=== PATIENT | male | born 1960 | race Caucasian/White ===

== ENCOUNTER 2022-08-23 09:14 | Day surgery (SDC) | payer MEDICARE, SELFPAY ==
--- OUTSIDE RECORDS SUMMARY | 2022-08-23 09:19 | XMS_ITS | Continuity of Care Document ---
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 Phone [facility] Unavailable Unava ilable Procedures Procedure Date IMPLANT NEUROELECTRODES INSRT/REDO SPINE N GENERATOR Implt neurostim elctr each Imp neurosti pls gn any type IMPLANT NEUROELECTRODES Implt neurostim elctr each IMPLANT NEUROELECTRODES Advance Directives Directive Yes / No Effective Date File Name No Information Encounters Encounter Description Practice Location Reason(s) For Visit Diagnoses Date Provider Providers Copied on Encounter [facility], [address] [place] [address], [id number], tel:[phone] [facility] No Information 1 [facility]. [address] [place] [address], [id number], [place]. tel:[phone] Referring Provider: Merry Jackman [facility] [address], [place], [address]. tel:[phone] [facility], [address] [place] [address], [id number], tel:[phone] [facility] No Information [facility]. [address] [place] [address], [id number], [place]. tel:[phone] Referring Provider: Tommie Yepez [address], [place], [address]. tel:[phone] Family History Family Member Type Diagnosis Age At Onset No Information Payers Payer name Insurance type Covered alliance party ID Authoriza tialexis(s) [facility] [id number] Social History Type Description Quantity Date Captured Comments Sex Male Smoking Status No Information Chief Complaint And Reason For Visit No Information Reason For Referral Reason For Referral No Information Plan Of Treatment Date Type Action Status No Information History Of Present Illness Encounter Date Complaint History Of Prese nt Illness No Information Functional Status Date Functional Assessmen t No Information Instructions Date Instruction Additional Infor mation No Information Assessments Type Assessment Date No Information Patient Care Teams Name Effective Dates (start - stop) Status Members No Information
--- OUTSIDE RECORDS SUMMARY | 2022-08-23 09:19 | XMS_ITS | Continuity of Care Document ---
Author Name Unknown Organization [facility] Address [address] [facility] [place] [address] Phone Care Team Providers Care Carpet Renovator Name Role Phone Elham DESAITFawad Unavailable Unava ilable Allergies, Adverse Reactions, Alerts Substance Reaction Status Criticality No Known Allergies Active No Inform ation Medications Medication Instructions Dosage Effective Dates (start - stop) Status Comments gabapentin 300 mg capsule take 1 capsule by oral route 1-3 times daily per titration schedule provided - Active Trulicity 0.75 mg/0.5 mL subcutaneous pen injector inject (0.75MG) by subcutaneous route every week 0.75 MG - Active lisinopril 5 mg tablet take 1 tablet by oral route every day 5 MG - Active Procedures Procedure Date ANALYZE NEUROSTIM, COMPLEX Foll-up eval q3mo opiod tx OFFICE/OUTPATIENT VISIT, EST Foll-up eval q3mo opiod tx OFFICE VISIT, EST TELEMEDICINE Foll-up eval q3mo opiod tx OFFICE VISIT, EST TELEMEDICINE Drug Urine Toxology With Chromatography Drug test def 8-14 classes Foll-up eval q3mo opiod tx OFFICE/OUTPATIENT VISIT, EST NEUROMUSCULAR REEDUCATION SELF CARE MNGMENT TRAINING Foll-up eval q3mo opiod tx OFFICE VISIT, EST TELEMEDICINE 21 PT RE EVAL EST PLAN CARE NEUROMUSCULAR REEDUCATION SCS Post Op Satellite Foll-up eval q3mo opiod tx OFFICE VISIT, EST TELEMEDICINE 21 [facility]CS Post Op Satellite No Charge For Visit Per Prov IMPLANT NEUROELECTRODES ASC IMPLANT NEUROELECTRODES ASC INSRT/REDO SPINE N GENERATOR Implt neurostim elctr each Imp neurosti pls gn any type ROUTINE BLOOD DRAW OFFICE/OUTPATIENT VISIT, EST No Charge For Visit Per Prov SCS Lead Pull Satellite No Charge For Visit Per Prov SCS Mid Trial Satellite IMPLANT NEUROELECTRODES ASC IMPLANT NEUROELECTRODES [facility] ANALYZE NEUROSTIM, COMPLEX Foll-up eval q3mo opiod tx OFFICE VISIT, EST TELEMEDICINE 21 PT EVAL MOD COMPLEX 30 MIN SELF CARE MNGMENT TRAINING Foll-up eval q3mo opiod tx OFFICE/OUTPATIENT VISIT, EST Psych Dx Eval Foll-up eval q3mo opiod tx OFFICE/OUTPATIENT VISIT, EST Foll-up eval q3mo opiod tx OFFICE/OUTPATIENT VISIT, EST Foll-up eval q3mo opiod tx OFFICE/OUTPATIENT VISIT, EST ROUTINE BLOOD DRAW Drug test def 8-14 classes Drug Urine Toxology With Chromatography OFFICE/OUTPATIENT VISIT, NEW PT-FOCUSED HLTH RISK ASSMT Advance Directives Directive Yes / No Effective Date File Name No Information Encounters Encounter Description Practice Location Reason(s) For Visit Diagnoses Date Provider Providers Copied on Encounter [facility], [address] [place] [address], [id number] , [place] tel: [phone] [facility] [place] No Information 2 Elham Howardmarianne Fawad. [address] [place] [address] [place], [place], [id number] , [place]. tel: [phone] [facility], [address] [place] [address], [id number] , [place] tel: [phone] [facility] Complex regional pain syndrome I 2 Yepez Tommie. [facility], [address], [place], [address], [place]. [phone] Referring Provider: Samuel Johnson, [address] [place], [place] [address], [address] . tel:[phone] OFFICE/OUTPAT IENT VISIT, EST [facility], [address] [place] [address], [id number] , [place] tel:[phone] [facility] UE CRPS (chief complaint) Carpal tunnel syndrome, bilateral upper limbsNeuropathyCo mplex regional pain syndrome ISpinal stenosis, cervical regionLong term (current) use of opiate analgesicOther residential (current) drug therapy 2 Yepez Tommie. [facility], [address], [place], [address], [place]. [phone] Referring Provider: Samuel Johnson, [address] [place], [place] [address], [address] . tel:[phone] OFFICE VISIT, EST TELEMEDICINE [facility], [address] [place] [address], [id number] , [place] tel:[phone] [facility] [place] [facility] UE CRPS (chief complaint) NeuropathyLong term (current) use of opiate analgesicSpinal stenosis, cervical regionComplex regional pain syndrome ICarpal tunnel syndrome, bilateral upper limbsOther residential (current) drug therapy 2 Yepez Tommie. [facility], [address], [place], [address], [place]. tel:[phone] OFFICE VISIT, [facility] TELEMEDICINE [facility], [address] [place] [address], [id number] , [place] [phone] [facility] UE CRPS (chief complaint) NeuropathyLong term (current) use of opiate analgesicSpinal stenosis, cervical regionComplex regional pain syndrome ICarpal tunnel syndrome, bilateral upper limbsOther residential (current) drug therapy 2 Yepez Tommie. [facility], [address], [place], [address], [place]. [phone] [facility], [address] [place] [address], [id number] , [place] [phone] [facility] No Information 1 Yepez Tommie. [facility], [address], [place], [address], [place]. [phone] Referring Provider: Samuel Johnson, [address] [place], [place] [address], [address] . tel:[phone] OFFICE/OUTPAT IENT VISIT, [facility], [address] [place] [address], [id number] , [place] [phone] [facility] UE CRPS (chief complaint) NeuropathyLong term (current) use of opiate analgesicSpinal stenosis, cervical regionComplex regional pain syndrome ICarpal tunnel syndrome, bilateral upper limbsOther intermodal owner operator truck driver (current) drug therapyEncounter for therapeutic drug level monitoring 1 Yepez Tommie. [facility], [address], [place], [address], [place]. tel:[phone] Referring Provider: Samuel Johnson, [address] [place], [place] [address], [address] . [phone] [facility], [address] [place] [address], [id number] , [place] tel: [phone] [facility] B UE CRPS (chief complaint) Complex regional pain syndrome I of upper limb, bilateral 1 Elham Celestin. [address] [place], [id number] , [place]. tel: [phone] Referring Provider: Samuel Johnson, [address] [place] [address] [place], [address] . tel:[phone] OFFICE VISIT, EST TELEMEDICINE [facility], [address] [place] [address] [place], [id number] , [place] tel: [phone] [facility] [place] [facility] UE CRPS (chief complaint) NeuropathyLong term (current) use of opiate analgesicSpinal stenosis, cervical regionComplex regional pain syndrome ICarpal tunnel syndrome, bilateral upper limbsOther residential (current) drug therapy 1 Lucho Diallois. [facility], [address], [place], [address], [place]. [phone] Referring Provider: Samuel Johnson, [address] [place] [address] [place], [address] . tel:[phone] [facility], [address] [place], [place] [address]Mir[place], [id number] , [place] tel: [phone] [facility] [place] B UE (chief complaint) Complex regional pain syndrome I of upper limb, bilateralSpinal stenosis, cervical region 1 Elham Celestin. [address] [place], [id number] , [place]. tel:[phone] Referring Provider: Samuel Johnson, [address] [place], [place] [address], [address] . tel:[phone] OFFICE VISIT, EST TELEMEDICINE [facility], [address] [place], [id number] , [place] tel:[phone] [facility] [place] Complex Regional Pain Syndrome (chief complaint) NeuropathyLong term (current) use of opiate analgesicSpinal stenosis, cervical regionComplex regional pain syndrome ICarpal tunnel syndrome, bilateral upper limbsOther intermodal owner operator truck driver (current) drug therapy Oct-2 0- 1 Amber Morillo. [address], [place], [place], [id number] , [place]. tel: [phone] [facility], [address] [place] [address], [id number] , [place] tel: [phone] [facility] Complex regional pain syndrome I of upper limb, bilateral Oct- 3- 1 Kristin Sr. [address], [place], [place], [id number] , [place]. tel: [phone] Referring Provider: Samuel Johnson, [address] [place], [place] [address], [address] . tel:[phone] [facility], [address] [place] [address], [id number] , [place] tel: [phone] [facility] Complex regional pain syndrome I of upper limb, bilateral Feb-0 1 Yepez Tommie. [facility], [address], [place], [address], [place]. [phone] Referring Provider: Samuel Johnson, [address] [place], [place] [address], [address] . tel:[phone] [facility], [address] [place] [address], [id number] , [place] tel: [phone] [facility] No Information Jan-2 1 Yepez Tommie. [facility], [address], [place], [address], [place]. [phone] OFFICE/OUTPAT IENT VISIT, EST [facility], [address] [place] [address], [id number] , [place] tel:[phone] [facility] B UE CRPS (chief complaint) Other residential (current) drug therapyCarpal tunnel syndrome, bilateral upper limbsComplex regional pain syndrome ISpinal stenosis, cervical regionLong term (current) use of opiate analgesicNeuropat hy Sep-2 8 1 Yepez Tommie. [facility], [address], [place], [address], [place]. [phone] Referring Provider: Samuel Johnson, [address] [place] [address] [place], [address] . tel:[phone] [facility], [address] [place] [address] [place], [id number] , [place] [phone] [facility] Complex regional pain syndrome I of upper limb, bilateral Sep-0 2 1 Yepez Tommie. [facility], [address], [place], [address], [place]. [phone] Referring Provider: Samuel Johnson, [address] [place] [address] [place], [address] . [phone] [facility], [address] [place] [address] [place], [id number] , [place] tel:[phone] [facility] Complex regional pain syndrome I of upper limb, bilateral Aug-3 0- 1 Kristin Sr. [address] [place] [address] [address], [place], [id number] , [place]. tel:[phone] Referring Provider: Samuel Johnson, [address] [place] [address] [place], [address] . tel:[phone] [facility], [address] [place] [address] [place], [id number] , [place] [phone] [facility] Complex regional pain syndrome I of upper limb, bilateral Aug-2 1 Yepez Tommie. [facility], [address] [facility] [address], [place], [address], [place]. [phone] Referring Provider: Samuel Johnson, [address] [place] [address] [place], [address] . tel:[phone] OFFICE VISIT, EST TELEMEDICINE [facility], [address] [place] [address] [place], [id number] , [place] tel:[phone] [facility] [place] retirement (current) use of opiate analgesicOther residential (current) drug therapyCarpal tunnel syndrome, bilateral upper limbsNeuropathyCo mplex regional pain syndrome ISpinal stenosis, cervical region 1 Yepez Tommie. [facility], [address], [place], [address], [place]. [phone] Referring Provider: Samuel Johnson, [address] [place] [address] [place], [address] . tel:[phone] [facility], [address] [place] [address] Félix [place], [place], [id number] , [place] tel:[phone] [facility] UE CRPS (chief complaint) Complex regional pain syndrome I of upper limb, bilateral 1 Elham Celestin. [address] [place] [address] [place], [id number] , [place]. tel:[phone] Referring Provider: Samuel Johnson, [address] [place] [address] [place], [address] . tel:[phone] OFFICE/OUTPAT IENT VISIT, [facility], [address] [place] [address] [place], [id number] , [place] tel: [phone] [facility] Arm pain (chief complaint) terminal superintendent (current) use of opiate analgesicOther residential (current) drug therapyCarpal tunnel syndrome, bilateral upper limbsNeuropathyCo mplex regional pain syndrome ISpinal stenosis, cervical regionComplex regional pain syndrome I of upper limb, bilateral 1 Yepez Tommie. [facility], [address], [place], [address], [place]. tel:[phone] Referring Provider: Samuel Johnson, [address] [place] [address] [place], [address] . 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 [address] [place] [address] [place], [id number] , [place]. tel:[phone] Referring Provider: Samuel Johnson, [address] [place] [address] [place], [address] . tel:[phone] OFFICE/OUTPAT IENT VISIT, [facility], [address] [place] [address] Félix [place], [place], [id number] , [place] tel: [phone] [facility] Arm pain (chief complaint) retirement (current) use of opiate analgesicOther intermodal owner operator truck driver (current) drug therapyCarpal tunnel syndrome, bilateral upper limbsNeuropathyCo mplex regional pain syndrome ISpinal stenosis, cervical region 1 Yepez Tommie. [facility], [address], [place], [address], [place]. [phone] Referring Provider: Samuel Johnson, [address] [place] [address] [place], [address] . tel:[phone] OFFICE/OUTPAT IENT VISIT, [facility], [address] [place] [address], [id number] , [place] tel:[phone] [facility] Arm pain (chief complaint) retirement (current) use of opiate analgesicOther residential (current) drug therapyCarpal tunnel syndrome, bilateral upper limbsNeuropathyCo mplex regional pain syndrome ISpinal stenosis, cervical region 1 Yepez Tommie. [facility], [address], [place], [address], [place]. [phone] Referring Provider: Samuel Johnson, [address] [place] [address] [place], [address] . tel:[phone] OFFICE/OUTPAT IENT VISIT, [facility], [address] [place] [address] [place], [place], [id number] , [place] [phone] [facility] Arm pain (chief complaint) terminal superintendent (current) use of opiate analgesicOther residential (current) drug therapyCarpal tunnel syndrome, bilateral upper limbsNeuropathyCo mplex regional pain syndrome ISpinal stenosis, cervical region 1 Yepez Tommie. [facility], [address], [place], [address], [place]. [phone] Referring Provider: Samuel Johnson, [address] [place] [address] [place], [address] . tel:[phone] [facility], [address] [place] [address], [id number] , [place] [phone] [facility] Encounter for therapeutic drug level monitoringLong term (current) use of opiate analgesic 1 [facility] Tommie. [facility], [address], [place], [address], [place]. [phone] Referring Provider: Samuel Johnson, [address] [place] [address] [place], [address] . tel:[phone] OFFICE/OUTPAT IENT VISIT, [facility], [address] [place] [address], [id number] , [place] [phone] [facility] Widespread pain (chief complaint) Encounter for screening for other disorderLong term (current) use of opiate analgesicOther residential (current) drug therapyNeuropathy Carpal tunnel syndrome, bilateral upper limbsComplex regional pain syndrome IEncounter for therapeutic drug level monitoringSpinal stenosis, cervical region 1 Yepez Tommie. [facility], [address], [place], [address], [place]. [phone] Referring Provider: Samuel Johnson, [address] [place] [address] [place], [address] . tel:[phone] [facility], [address] [place] [address], [id number] , [place] tel:[phone] [facility] No Information 1 Yepez Tommie. [facility], [address], [place], [address], [place]. tel:[phone] Family History Family Member Type Diagnosis Age At Onset No Information Payers Payer name Insurance type Covered republican ID James burr(s) Blue Cross Blue [facility] BL [id number] Social History Type Description Quantity Date Captured Comments Sex Male Smoking Status No Information Chief Complaint And Reason For Visit No Information Reason For Referral Reason For Referral No Information Plan Of Treatment Date Type Action Status Goal Weight. Due on d ue Goal Medication Reconciliation. D ue on due Goal PHQ-9. Due on du e Goal Tobacco Use. Due on due Goal Update Social History. Due o n due Goal Height. Due on d ue Goal OARS. Due on due Goal Creatinine. Due on due Goal DISTRIBUTING CLERK Scanned. Due on due Goal UDT. Due on due Goal AST (SGOT). Due on due Goal Order Annual PT. Due on due Goal ALT (SGPT). Due on due Goal LIGHTING SPECIALIST Paperwork. Due on due Goal Review Allergy List. Due on due Goal Creatinine. Due on due Goal OARS. Due on due Goal Height. Due on d ue Goal Update Social History. Due o n due Goal Tobacco Use. Due on due Goal PHQ-9. Due on du e Goal Medication Reconciliation. D ue on due Goal Weight. Due on d ue Goal Review Allergy List. Due on due Goal DISTRIBUTING CLERK Scanned. Due on due Goal UDT. Due on due Goal AST (SGOT). Due on due Goal Order Annual PT. Due on due Goal ALT (SGPT). Due on due Goal LIGHTING SPECIALIST Paperwork. Due on due Goal Creatinine. Due on due Goal OARS. Due on due Goal Height. Due on d ue Goal Update Social History. Due o n due Goal Tobacco Use. Due on due Goal PHQ-9. Due on du e Goal Medication Reconciliation. D ue on due Goal Weight. Due on d ue Goal Review Allergy List. Due on due Goal LIGHTING SPECIALIST Paperwork. Due on due Goal ALT (SGPT). Due on due Goal Order Annual PT. Due on due Goal AST (SGOT). Due on due Goal UDT. Due on due Goal DISTRIBUTING CLERK Scanned. Due on due Goal Height. Due on d ue Goal Update Social History. Due o n due Goal Tobacco Use. Due on due Goal PHQ-9. Due on du e Goal Medication Reconciliation. D ue on due Goal Weight. Due on d ue Goal Review Allergy List. Due on due Goal Creatinine. Due on due Goal OARS. Due on due Goal LIGHTING SPECIALIST Paperwork. Due on due Goal ALT (SGPT). Due on due Goal Order Annual PT. Due on due Goal AST (SGOT). Due on due Goal UDT. Due on due Goal DISTRIBUTING CLERK Scanned. Due on due Goal Creatinine. Due on due Goal LIGHTING SPECIALIST Paperwork. Due on due Goal ALT (SGPT). Due on due Goal Order Annual PT. Due on due Goal AST (SGOT). Due on due Goal UDT. Due on due Goal DISTRIBUTING CLERK Scanned. Due on due Goal Update Social History. Due o n due Goal Tobacco Use. Due on due Goal PHQ-9. Due on du e Goal Medication Reconciliation. D ue on due Goal Weight. Due on d ue Goal Review Allergy List. Due on due Goal OARS. Due on due Goal Height. Due on d ue Goal LIGHTING SPECIALIST Paperwork. Due on due Goal ALT (SGPT). Due on due Goal Order Annual PT. Due on due Goal AST (SGOT). Due on due Goal UDT. Due on due Goal DISTRIBUTING CLERK Scanned. Due on due Goal Creatinine. Due on due Goal OARS. Due on due Goal Height. Due on d ue Goal Update Social History. Due o n due Goal Tobacco Use. Due on due Goal PHQ-9. Due on du e Goal Medication Reconciliation. D ue on due Goal Weight. Due on d ue Goal Review Allergy List. Due on due Goal Creatinine. Due on due Goal OARS. Due on due Goal Height. Due on d ue Goal Update Social History. Due o n due Goal Tobacco Use. Due on due Goal PHQ-9. Due on du e Goal Medication Reconciliation. D ue on due Goal Weight. Due on d ue Goal Review Allergy List. Due on due Goal LIGHTING SPECIALIST Paperwork. Due on due Goal ALT (SGPT). Due on due Goal Order Annual PT. Due on due Goal AST (SGOT). Due on due Goal UDT. Due on due Goal DISTRIBUTING CLERK Scanned. Due on due Goal Creatinine. Due on due Goal OARS. Due on due Goal Height. Due on d ue Goal Update Social History. Due o n due Goal Tobacco Use. Due on due Goal PHQ-9. Due on du e Goal Medication Reconciliation. D ue on due Goal Weight. Due on d ue Goal Review Allergy List. Due on due Goal LIGHTING SPECIALIST Paperwork. Due on due Goal ALT (SGPT). Due on due Goal Order Annual PT. Due on due Goal AST (SGOT). Due on due Goal UDT. Due on due Goal DISTRIBUTING CLERK Scanned. Due on due Goal Creatinine. Due on due Goal OARS. Due on due Goal Height. Due on d ue Goal Update Social History. Due o n due Goal Tobacco Use. Due on due Goal PHQ-9. Due on du e Goal Medication Reconciliation. D ue on due Goal Weight. Due on d ue Goal Review Allergy List. Due on due Goal LIGHTING SPECIALIST Paperwork. Due on due Goal ALT (SGPT). Due on due Goal Order Annual PT. Due on due Goal AST (SGOT). Due on due Goal UDT. Due on due Goal DISTRIBUTING CLERK Scanned. Due on due Goal Creatinine. Due on due Goal OARS. Due on due Goal Height. Due on d ue Goal Update Social History. Due o n due Goal Tobacco Use. Due on due Goal PHQ-9. Due on du e Goal Medication Reconciliation. D ue on due Goal Weight. Due on d ue Goal Review Allergy List. Due on due Goal LIGHTING SPECIALIST Paperwork. Due on due Goal ALT (SGPT). Due on due Goal Order Annual PT. Due on due Goal AST (SGOT). Due on due Goal UDT. Due on due Goal DISTRIBUTING CLERK Scanned. Due on due Goal DISTRIBUTING CLERK Scanned. Due on due Goal Creatinine. Due on due Goal OARS. Due on due Goal Height. Due on d ue Goal Update Social History. Due o n due Goal Tobacco Use. Due on due Goal PHQ-9. Due on du e Goal LIGHTING SPECIALIST Paperwork. Due on due Goal ALT (SGPT). Due on due Goal Order Annual PT. Due on due Goal AST (SGOT). Due on due Goal UDT. Due on due Goal Medication Reconciliation. D ue on due Goal Weight. Due on d ue Goal Review Allergy List. Due on due Goal Height. Due on d ue Goal Update Social History. Due o n due Goal Tobacco Use. Due on due Goal PHQ-9. Due on du e Goal Creatinine. Due on due Goal OARS. Due on due Goal LIGHTING SPECIALIST Paperwork. Due on due Goal ALT (SGPT). Due on due Goal Order Annual PT. Due on due Goal AST (SGOT). Due on due Goal UDT. Due on due Goal DISTRIBUTING CLERK Scanned. Due on due Goal Medication Reconciliation. D ue on due Goal Weight. Due on d ue Goal Review Allergy List. Due on due Goal Creatinine. Due on due Goal OARS. Due on due Goal Height. Due on d ue Goal Update Social History. Due o n due Goal Tobacco Use. Due on due Goal PHQ-9. Due on du e Goal Medication Reconciliation. D ue on due Goal Weight. Due on d ue Goal Review Allergy List. Due on due Goal LIGHTING SPECIALIST Paperwork. Due on due Goal ALT (SGPT). Due on due Goal Order Annual PT. Due on due Goal AST (SGOT). Due on due Goal UDT. Due on due Goal DISTRIBUTING CLERK Scanned. Due on due Goal LIGHTING SPECIALIST Paperwork. Due on due Goal ALT (SGPT). Due on due Goal Order Annual PT. Due on due Goal AST (SGOT). Due on due Goal UDT. Due on due Goal DISTRIBUTING CLERK Scanned. Due on due Goal Creatinine. Due on due Goal OARS. Due on due Goal Height. Due on d ue Goal Update Social History. Due o n due Goal Tobacco Use. Due on due Goal PHQ-9. Due on du e Goal Medication Reconciliation. D ue on due Goal Weight. Due on d ue Goal Review Allergy List. Due on due Goal Creatinine. Due on due Goal OARS. Due on due Goal Height. Due on d ue Goal Update Social History. Due o n due Goal LIGHTING SPECIALIST Paperwork. Due on due Goal ALT (SGPT). Due on due Goal Order Annual PT. Due on due Goal AST (SGOT). Due on due Goal UDT. Due on due Goal DISTRIBUTING CLERK Scanned. Due on due Goal Tobacco Use. Due on due Goal PHQ-9. Due on du e Goal Medication Reconciliation. D ue on due Goal Weight. Due on d ue Goal Review Allergy List. Due on due Goal Weight. Due on d ue Goal Review Allergy List. Due on due Goal LIGHTING SPECIALIST Paperwork. Due on due Goal ALT (SGPT). Due on due Goal Order Annual PT. Due on due Goal AST (SGOT). Due on due Goal UDT. Due on due Goal DISTRIBUTING CLERK Scanned. Due on due Goal Creatinine. Due on due Goal OARS. Due on due Goal Height. Due on d ue Goal Update Social History. Due o n due Goal Tobacco Use. Due on due Goal PHQ-9. Due on du e Goal Medication Reconciliation. D ue on due Goal Creatinine. Due on due Goal OARS. Due on due Goal Height. Due on d ue Goal Update Social History. Due o n due Goal Tobacco Use. Due on due Goal PHQ-9. Due on du e Goal Medication Reconciliation. D ue on due Goal Weight. Due on d ue Goal Review Allergy List. Due on due Goal LIGHTING SPECIALIST Paperwork. Due on due Goal ALT (SGPT). Due on due Goal Order Annual PT. Due on due Goal AST (SGOT). Due on due Goal UDT. Due on due Goal DISTRIBUTING CLERK Scanned. Due on due Goal Creatinine. Due on due Goal OARS. Due on due Goal Height. Due on d ue Goal Update Social History. Due o n due Goal Tobacco Use. Due on due Goal PHQ-9. Due on du e Goal Medication Reconciliation. D ue on due Goal Weight. Due on d ue Goal Review Allergy List. Due on due Goal LIGHTING SPECIALIST Paperwork. Due on due Goal ALT (SGPT). Due on due Goal Order Annual PT. Due on due Goal AST (SGOT). Due on due Goal UDT. Due on due Goal DISTRIBUTING CLERK Scanned. Due on due Goal LIGHTING SPECIALIST Paperwork. Due on due Goal ALT (SGPT). Due on due Goal Order Annual PT. Due on due Goal AST (SGOT). Due on due Goal UDT. Due on due Goal DISTRIBUTING CLERK Scanned. Due on due Goal Creatinine. Due on due Goal OARS. Due on due Goal Height. Due on d ue Goal Update Social History. Due o n due Goal Tobacco Use. Due on due Goal PHQ-9. Due on du e Goal Medication Reconciliation. D ue on due Goal Weight. Due on d ue Goal Review Allergy List. Due on due Goal Creatinine. Due on due Goal OARS. Due on due Goal Height. Due on d ue Goal Update Social History. Due o n due Goal Tobacco Use. Due on due Goal PHQ-9. Due on du e Goal Medication Reconciliation. D ue on due Goal Weight. Due on d ue Goal Review Allergy List. Due on due Goal LIGHTING SPECIALIST Paperwork. Due on due Goal ALT (SGPT). Due on due Goal Order Annual PT. Due on due Goal AST (SGOT). Due on due Goal UDT. Due on due Goal DISTRIBUTING CLERK Scanned. Due on due Goal Review Allergy List. Due on due Goal LIGHTING SPECIALIST Paperwork. Due on due Goal ALT (SGPT). Due on due Goal Order Annual PT. Due on due Goal AST (SGOT). Due on due Goal UDT. Due on due Goal DISTRIBUTING CLERK Scanned. Due on due Goal Creatinine. Due on due Goal OARS. Due on due Goal Height. Due on d ue Goal Update Social History. Due o n due Goal Tobacco Use. Due on due Goal PHQ-9. Due on du e Goal Medication Reconciliation. D ue on due Goal Weight. Due on d ue Goal Creatinine. Due on due Goal OARS. Due on due Goal Height. Due on d ue Goal Update Social History. Due o n due Goal Tobacco Use. Due on due Goal PHQ-9. Due on du e Goal Medication Reconciliation. D ue on due Goal Weight. Due on d ue Goal Review Allergy List. Due on due Goal LIGHTING SPECIALIST Paperwork. Due on due Goal ALT (SGPT). Due on due Goal Order Annual PT. Due on due Goal AST (SGOT). Due on due Goal UDT. Due on due Goal DISTRIBUTING CLERK Scanned. Due on due Goal LIGHTING SPECIALIST Paperwork. Due on due Goal ALT (SGPT). Due on due Goal Order Annual PT. Due on due Goal AST (SGOT). Due on due Goal UDT. Due on due Goal DISTRIBUTING CLERK Scanned. Due on due Goal Creatinine. Due on due Goal OARS. Due on due Goal Height. Due on d ue Goal Update Social History. Due o n due Goal Tobacco Use. Due on 021 due Goal PHQ-9. Due on du e Goal Medication Reconciliation. D ue on due Goal Weight. Due on d ue Goal Review Allergy List. Due on due Goal Tobacco cessation counseling completed History Of Present Illness Encounter Date Complaint History Of Prese nt Illness B UE CRPS (comments) Mr. Mcfarland is a pleasant 61 y/o gentleman who presents for follow-up and medication refill. 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 Notes ongoing benefit with SCS and stable symptoms this month. He has had decreased pain after experiencing a crack in his spine while sleeping. He inquires about trying gabapentin again for neuropathy.He is currently managed on Percocet 5-325mg max 2/day with 40% pain relief and increased functionality, averaging #1 tab/day. Denies side effects from current medication regimen. No other concerns today. B UE CRPS The symptoms are reported as being 2/10. The symptoms occur constantly. The location is BL hands. The symptoms are described as Aching, burning, tingling. Aggravating factors include housework. Relieving factors include heat, rest, Rx meds. He states the symptoms are chronic. B UE CRPS The symptoms are reported as being severe. The symptoms occur daily. The location is Hands. Aggravating factors include housework, lifting. Relieving factors include Heat, Rx medications. He states the symptoms are chronic. B UE CRPS (comments) Mr. Mcfarland is a pleasant 61 y/o gentleman who presents via [facility] for follow-up and medication refill. 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 Notes ongoing benefit with SCS and stable symptoms this month, but he would like to update his programming next month.He is currently managed on Percocet 5-325mg max 2/day with 40% pain relief and increased functionality. Denies side effects from current medication regimen. No other concerns today. B UE CRPS The symptoms are reported as being 3/10. The symptoms occur constantly. The symptoms are described as Aching, burning, sharp. Aggravating factors include housework, lifting. Relieving factors include Heat, rx medications, rest. He states the symptoms are chronic. B UE CRPS (comments) Mr. Mcfarland is a pleasant 61 y/o gentleman who presents for [facility] follow-up and medication refill. 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 Notes ongoing benefit with SCS and stable symptoms this month.He is currently managed on Percocet 5-325mg max 2/day with 30% pain relief and increased functionality. Denies side effects from current medication regimen. No other concerns today. B UE CRPS The symptoms are reported as being 3/10. The symptoms occur daily. The location is BUE. The symptoms are described as aching, burning, sharp, tingling. Aggravating factors include lifting, housework, using hands. Relieving factors include heat, mediations, SCS. He states the symptoms are chronic and are fairly controlled. B UE CRPS (comments) Mr. Mcfarland is a pleasant 60 y/o gentleman who presents for follow-up and medication refill. 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 S/p cervical SCS Medtronic implant 02/09. Notes ongoing benefit with SCS, although occasionally feels pain with certain movements. He has continued to work with Medtronic to find the best settings. He was discharged from PT at [facility] last month on 03/30 d/t improving symptoms. Additionally notes some fluctuating depression and anxiety symptoms for the last several years, unsure if r/t his chronic pain. Plans on discussing with PCP.He is currently managed on Percocet 5-325mg max 2/day, decreased from max 3/day MIGUEL ANGEL, which he has been tolerating. Reports current medication regimen provides 30% pain relief and allows increased functionality. Denies side effects from current medication regimen. No other concerns today. B UE CRPS Patient states t hat he has been continuing to get relief from the stimulator. He states that he has been able to do much more with his hands than he has been doing much more than he has been able to in the past. He states that the main thing he is struggling with cold and temperature regulation of his hands. He notes that he feels that his battery feels cold when he is out in the cold temperature. He notes no strength or mobility deficits at this time. B UE CRPS The symptoms are reported as being 2/10. The symptoms occur constantly. The location is BL arms, BL hands. The symptoms are described as aching, burning, tingling. Aggravating factors include housework, lifting, movement. Relieving factors include heat, Rx medications, rest. He states the symptoms are chronic. B UE CRPS (comments) Mr. Mcfarland is a pleasant 60 y/o gentleman who presents via [facility] for virtual follow-up and medication refill. 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 S/p cervical SCS Medtronic implant 02/09. Details ongoing benefit with SCS and is continuing to work with Medtronic to find the best settings. He has been doing PT with benefit.He is currently managed on Percocet 5-325mg max 3/day. Reports current medication regimen provides 40% pain relief and allows increased functionality. Denies side effects from current medication regimen. No other concerns today. B UE Patient is a 60 year old male presenting 4 weeks s/p SCS implant to help control pain and symptoms related to CRPS of his arms and hands. He notes that he has had significant improvement in his discomfort in his arms and hands following the implant. He notes that he has also had improvement in the sensitivity in his hands that was previously present. He states that he able to do more today with his hands than he has done for many years. He states that he has played around with the settings to best fit it symptoms. He feels that he may need some fine tuning adjustments but is on the right track. Patient notes some continued associated weakness and numbness. He would like to continue the improvement in his overall discomfort to allow him to perform his daily, functional activities with less limitation and experience an improved quality of life. Complex Regional Ariel n Syndrome (comments) Ulysses presents to clinic for follow-up and 2 week post-op following SCS implant. 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 His pain has been improving significantly since last OV. Details good benefit with SCS. Continuing to work with Medtronic to obtain the same benefit that he got during the trial. He is currently managed on Percocet 10-325mg TID and presents with a small surplus today. He requests to begin tapering off Percocet as his pain has been significantly improved. Reports current medication regimen provides 25% pain relief and allows increased functionality. Denies side effects from current medication regimen. No other concerns today. Complex Regional Pain Syndrome T he symptoms are reported as being 3/10. The symptoms occur constantly. The location is BUE. The symptoms are described as aching, burning, tingling, sharp, numbness. Aggravating factors include housework, lifting. Relieving factors include heat, rest. He states the symptoms are chronic and are controlled. B UE CRPS The symptoms occ ur constantly. The context of the symptoms include fluctuating. The symptoms are described as aching, burning, sharp, tingling. Aggravating factors include housework, lifting. Relieving factors include heat. He states the symptoms are chronic. B UE CRPS (comments) Mr. Mcfarland is a pleasant 60 y/o gentleman who presents to clinic for follow-up, medication refill and Medtronic SCS pre-implant education, regarding chronic R>L UE neuropathic pain in the setting of a complex surgical history. His pain has been fluctuating since last OV with R pain>L though the L pain now starting to catch up. He is excited for his upcoming SCS implant as he reported good relief with the trial. He is currently managed on Percocet 10-325mg TID and presents with a small surplus today. Reports current medication regimen provides 10% pain relief and allows increased functionality. Denies side effects from current medication regimen. No other concerns today. B UE CRPS Patient is a 60 year old male presenting with complaints of chronic bilateral arm and hand pain that has been on going since 2013. This all happened following CTS on both of his hands. The surgeries were a result of work-related injuries. He notes that the pain he has been feeling has progressively worsened over the years. He states that the pain he experiences at this point is severe and doesn't go away. He notes that if he does anything for longer than 1 minute with his hands his pain spikes to 8/10. He cannot have any cold air blowing near his hands or his pain will flair. He states that he has a lot of tingling, pain, and pressure in his hands, bilaterally. Patient notes associated weakness in his hands and cannot evp general counsel. Symptoms are somewhat relieved when putting his hands in warm water. He has tried multiple different interventions, including physical therapy but has not had any relief of his pain. He notes that his current level of discomfort limits everything he is able to do each day and is currently limiting his overall quality of life. He would like to decrease his overall discomfort to allow him to perform his daily, functional activities with less limitation and an improved quality of life. Arm pain Duration: chroni c. Severity level is 7. It occurs constantly and is worsening. Location: bilateral lower arms. There is no radiation. The pain is aching, burning, sharp and tingling. The pain is aggravated by lifting, movement, housework, gripping and grasping. The pain is relieved by heat, pain/RX meds and rest. Arm pain (comments) Mr. Mcfarland i s a pleasant 60 y/o gentleman who presents to clinic for follow-up and medication refill regarding chronic R>L UE neuropathic pain in the setting of a complex surgical history. His pain has been worse and he inquires why this is happening because he has been stable for the past few months. His pain is the worse at night and his left hand is becoming more like the right. He describes his arms as tight and feels like he as latex gloves on that are too small. Since last OV, he completed a psych eval in anticipation of a cervical SCS trial. He has not completed physical therapy for a few years but is willing to completed PT with Rick if needed. He believes PT was at [facility]. He is ready for the cervical SCS trial to be ordered. At last OV, MSContin was discarded. He is managing on Percocet 7.5-325mg TID and presents with a surplus today. Reports current medication regimen provides 50% pain relief and allows increased functionality. Denies side effects from current medication regimen. He is hoping to increase medications today. No other concerns today.Of note, his SSDI hearing is approaching. Arm pain (comments) Mr. Bartolo fiore s a pleasant 60 y/o gentleman who presents to clinic for follow-up and medication refill regarding chronic R>L UE neuropathic pain in the setting of a complex surgical history. Since last OV, he went to the ED for severe diarrhea and dehydration. He stopped MS Contin and never filled the last rx. He has a hearing in the next few his weeks for SSDI. He wants to hear more information about SCS and wants to start the process. At last OV, Dublin was discarded, Percocet TID was increased to 7.5-325mg from 5-325mg. MS Contin 15mg qhs was added the month before. Reports current medication regimen provides 20% pain relief and allows increased functionality. Denies side effects from current medication regimen. No other concerns today.Of note, his 's vascular surgery went well. Arm pain Duration: chroni c. Severity level is 5. It occurs constantly and is stable. Location: bilateral forearms. There is no radiation. The pain is aching, burning, sharp and tingling. The pain is aggravated by lifting and grasping. The pain is relieved by heat. Arm pain (comments) Mr. Bartolo fiore s a pleasant 60 y/o gentleman who presents to clinic for follow-up after initial consult regarding chronic R>L UE neuropathic pain in the setting of a complex surgical history. At last OV, he discontinued Dublin as it provided minimal relief. He reports the addition of MS Contin before bed has enabled him to sleep better. Reports current medication regimen provides 5% pain relief and allows increased functionality. Denies side effects from current medication regimen. No other concerns today.Of note, his is going to have a major vascular surgery tomorrow and this is part of the reason why he wants to delay any neuromodulation treatment. Arm pain Duration: chroni c. Severity level is 7. It occurs constantly and is worsening. Location: bilateral R>L. The pain radiates to the FÉLIX forearms. The pain is aching, burning and sharp. The pain is aggravated by lifting, movement and housework. The pain is relieved by ice. Arm pain (comments) Mr. Bartolo fiore s a pleasant 60 y/o gentleman who presents to clinic for follow-up after initial consult regarding chronic R>L UE neuropathic pain in the setting of a complex surgical history. He reports his pain has slightly increased since he was last seen. He has been doing his own research regarding narcotics, nerve blocks, and stimulation. He is concerned about the financial burden of stimulation and his is having a vascular surgery soon so finances are tight.He is currently managed on Dublin 7.5-325mg BID but he discloses sometimes TID or BID depending on his pain. He describes that this regimen is moderately controlling his pain. However, he believes that an increase would be a good idea. He says that he needs to be on a strict time schedule to ensure he is getting appropriate coverage because he notices difficulty if off schedule (especially in the morning). He is interested in switching to oxycodone. Reports current medication regimen provides 10% pain relief and allows increased functionality. Denies side effects from current medication regimen. No other concerns today.Of note, he has a disability hearing coming up soon as he has been denied in the past. Arm pain Duration: chroni c. Severity level is 8. It occurs constantly and is changing in character. Location: bilateral elbow. The pain is aching, burning, sharp, tingling and numbness. The pain is aggravated by lifting, movement, prolonged positioning and housework. The pain is relieved by heat and pain/RX meds. Widespread pain Severity level i s 7. Duration: chronic. Location of the pain is bilateral wrist, bilateral hand, bilateral mid foot and bilateral forefoot. The patient describes it as sharp, achy, burning, pins & needles and tingling. Symptom is aggravated by lifting, housework and movement. Relieving factors include rest and heat. Associated symptoms include diarrhea. Pertinent negatives include dyspnea, fever and incontinence (urinary). Widespread pain (comments) Mr. Kp parada is a pleasant 60 y/o gentleman who presents to clinic for initial consult following referral from Dr. Benson at [facility] regarding chronic R>L upper extremity pain in the setting of a complex surgical history including bilateral CT releases in 2012 and a revision on the right side with tenosynovectomy 03/30/20. He describes his pain as achy, burning, and tingling and rates it as a 7/10. He reports pain in his hands and anterior forearms which he describes as pins and needles. He specifically notes sharp electric shock feeling in his right palm and wrist upon any type of movement. Notes allodynia in median nerve distribution. He denies temperature change but is sensitive to cold. He denies color changes of his skin. He notes decreased motor coordination of FÉLIX hands which is worse in the morning. He also c/o burning and tingling in FÉLIX feet, which began in 2018, secondary to diabetic neuropathy which has been worsening over the past year. He has tried physical therapy in [place] from [id number] with no relief. He reports injections at [facility], [facility] in [place] and [place], and [facility] in [place]. This includes multiple median nerve blocks and a C7-T1 RAMU. However, they were not helpful. He reports MRI at [facility], EMG at [facility] in [place], and X-ray at [facility] in [place]. He discloses all imaging have been since November 2019. He has tried gabapentin up to 3600mg/day and Cymbalta (dose unknown). He is currently managing on Lyrica 200mg QD but has titrated to 600mg QD in the past. He also takes Dublin 7.5-325mg BID rx'd by Dr. Rizzo, as well as Voltaren gel. He notes his Dublin provides a couple of hours of moderate relief. He hopes to receive any treatment that will improve his ADLs. He reports having to withdraw from work in October 2019 d/t his pain and has been involved in WC. He is interested in establishing care with [facility]. No other concerns today. Functional Status Date Functional Assessmen t No Information Instructions Date Instruction Additional Infor mation No Information Assessments Type Assessment Date No Information Patient Care Teams Name Effective Dates (start - stop) Status Members No Information
--- OUTSIDE RECORDS SUMMARY | 2022-08-23 09:19 | XMS_ITS | Continuity of Care Document ---
Author Name Unknown Organization [facility] Address [address] [place] [address] Care Team Providers Care Tipple Mechanic Name Role Phone Leonard Lopes CRNA Unavailable Unavailabl e Procedures Procedure Date ANESTH, HEAD/NECK/PTRUNK ANESTH PERC IMG TX SP PROC Advance Directives Directive Yes / No Effective Date File Name No Information Encounters Encounter Description Practice Location Reason(s) For Visit Diagnoses Date Provider Providers Copied on Encounter [facility], [address], [place], [id number], [facility] No Information 1 Moses Valle. [address] [place], [place], [id number], . tel:[phone] Referring Provider: Tommie Yepez [facility] [address] [facility] [address], [place], [address]. tel:[phone] [facility], [address], [place], [id number], [facility] No Information 1 Nash Castillo. [address], [place], [id number], . tel:[phone] Referring Provider: Tommie Yepez [facility] [address], [place], [address]. tel:[phone] Family History Family Member Type Diagnosis Age At Onset No Information Payers Payer name Insurance type Covered green party ID Authoriza tion(s) Blue Cross Blue Shield BL [id number] Social History Type Description Quantity Date Captured [...]
[2022-08-23] MEDS: TETRACAINE 0.5% OPHTH 1 DROP EYE-RIGHT ×2 (09:25→09:30)
[2022-08-23] MEDS: KETOROLAC OPHTH 0.5% 1 DROP EYE-RIGHT ×3 (09:25→09:35)
[2022-08-23 09:40] VITALS: BP 142/84; PULSE 75; RESP 16; TEMP 36.5; O2SAT 97
[2022-08-23] MEDS: SODIUM CHLORIDE 0.9 % (FLUSH) 10 ML SYRINGE IVF (09:45)
[2022-08-23 09:56] VITALS: BMI 32.6
--- NOTE | 2022-08-23 10:01 | SUR.PREOP ---
HOME COVID NEGATIVE.
--- NOTE | 2022-08-23 10:07 | W.ANESCHARGE ---
Anesthesia Charges Start Date/Time Anesthesia Start Date: 08/23/22 Anesthesia Start Time: 10:28 Stop Date/Time Anesthesia Stop Date: 08/23/22 Anesthesia Stop Time: 11:05
[2022-08-23] MEDS: TETRACAINE 0.5% OPHTH 2 DROP EYE-RIGHT (10:31)
[2022-08-23] MEDS: BALANCED SALT IRRIG SOLN 15 ML EYE-RIGHT (10:35)
[2022-08-23 11:00] VITALS: BP 125/81; PULSE 70; RESP 16; TEMP 36.8; O2SAT 96
--- NOTE | 2022-08-23 11:03 | W.ANESCHARGE ---
Anesthesia Charges Start Date/Time Anesthesia Start Date: 08/23/22 Anesthesia Start Time: 10:28 Stop Date/Time Anesthesia Stop Date: 08/23/22 Anesthesia Stop Time: 11:05
--- NOTE | 2022-08-29 08:33 | W.PM.OPTPROC ---
Procedure Note Date of procedure: 08/29/[address] [facility] bill your pro fee for this procedure?: Yes Procedure Description: SURGEON: Nicole Ronquillo MD PREOPERATIVE DIAGNOSIS: Mature cataract, right eye. POSTOPERATIVE DIAGNOSIS: Mature cataract, right eye. NAME OF OPERATION: Phacoemulsification of cataract with posterior chamber intraocular lens implantation in the right eye. ANESTHESIA: Topical. ESTIMATED BLOOD LOSS: Less than 2 cc. COMPLICATIONS: None. PATHOLOGY SPECIMEN: None. INDICATIONS: See consult note for details. The risks, benefits and alternatives of the procedure were explained to the patient, who elected to proceed and signed informed consent to do so. PROCEDURE: The patient was brought to the pre-holding area where the right eye was identified as the operative eye. I placed my initials above this eye. The patient received eye drops consisting of 0.5% tetracaine, 1% tropicamide, 10% phenylephrine, and 0.5% ketorolac. The patient was then brought to the operating room where the right eye was again identified as the operative eye. The eye was prepped with Betadine and draped in the usual sterile ophthalmic fashion. A #15 super-sharp blade was used to create a paracentesis site. 1% non-preserved intracameral lidocaine was injected into the anterior chamber. Endocoat was injected into the anterior chamber. A 2.4 mm keratome was used to create a three-plane self-sealing incision 1 mm anterior to the temporal limbus. A cystotome was used to create an anterior capsular leaflet. The Utrata forceps were used to extend this to form a continuous curvilinear capsulorrhexis. Hydrodissection was performed. The cataract was removed with phacoemulsification using the vxjddw-aay-mbnsokx technique. The irrigation and aspiration tip was used to remove the remaining cortex. Healon was injected into the capsular bag. An JEAN CLAUDE ZCB00 intraocular lens of [] diopters was injected into the capsular bag. The irrigation and aspiration tip was used to remove the remaining viscoelastic. Balanced salt solution on a cannula was used to hydrate the wound, and the wound was found to be watertight. The pupil was noted to be round. DISPOSITION: The patient was taken to the recovery room and discharged to home in stable condition. The patient was instructed to call me or go to the emergency department with any sudden change, including dramatic loss of vision, severe pain in the eye or eyebrow region, nausea, or vomiting. The patient will follow up in the clinic tomorrow morning.
== END 2022-08-23 11:32 | disposition home or self-care (01) ==
LOC: OR 09:17
PROVIDERS: PCP Physician Assistant Medical; Visit Provider Ophthalmology
PROC: (CPT 66984; principal; 2022-08-23 09:15)
DX: H25.89 Other age-related cataract (principal)
CPT/HCPCS: 66984; 00142; 82962; A9270; J2250; J3010; V2632

== ENCOUNTER 2022-09-06 08:53 | Day surgery (SDC) | payer MEDICARE, SELFPAY ==
[2022-09-06] MEDS: TETRACAINE 0.5% OPHTH 1 DROP EYE-LEFT ×2 (09:02→09:06)
[2022-09-06] MEDS: KETOROLAC OPHTH 0.5% 1 DROP EYE-LEFT ×3 (09:05→09:14)
[2022-09-06] MEDS: SODIUM CHLORIDE 0.9 % (FLUSH) 10 ML SYRINGE IVF (09:10)
[2022-09-06 09:18] VITALS: BP 155/89; PULSE 83; RESP 16; TEMP 36.6; O2SAT 97; BMI 32.6
--- NOTE | 2022-09-06 09:24 | SUR.PREOP ---
The eye drops brought by the patient (Ketorolac and Prednisolone) are examined and I have determined they are labeled by the patient's pharmacy for this patient as prescribed by the surgeon. The bottles are intact, recently obtained and appear to be correct.
--- NOTE | 2022-09-06 09:24 | W.ANESCHARGE ---
Anesthesia Charges Start Date/Time Anesthesia Start Date: 09/06/22 Anesthesia Start Time: 09:55 Stop Date/Time Anesthesia Stop Date: 09/06/22 Anesthesia Stop Time: 10:33
[2022-09-06] MEDS: TETRACAINE 0.5% OPHTH 2 DROP EYE-LEFT (09:57)
[2022-09-06] MEDS: BALANCED SALT IRRIG SOLN 15 ML EYE-LEFT (10:05)
[2022-09-06 10:30] VITALS: BP 96/68; PULSE 71; RESP 16; TEMP 36.5; O2SAT 95
--- NOTE | 2022-09-06 10:33 | W.ANESCHARGE ---
Anesthesia Charges Start Date/Time Anesthesia Start Date: 09/06/22 Anesthesia Start Time: 09:55 Stop Date/Time Anesthesia Stop Date: 09/06/22 Anesthesia Stop Time: 10:33
--- NOTE | 2022-09-06 11:20 | P.OPTPRC_ITS ---
Procedure Note Date of procedure: 09/06/22 Will [facility] bill your pro fee for this procedure?: Yes Procedure Description: SURGEON: Nicole Ronquillo MD PREOPERATIVE DIAGNOSIS: Nuclear sclerotic cataract, left eye. POSTOPERATIVE DIAGNOSIS: Nuclear sclerotic cataract, left eye. NAME OF OPERATION: Phacoemulsification of cataract with posterior chamber intraocular lens implantation in the left eye. ANESTHESIA: Topical. ESTIMATED BLOOD LOSS: Less than 2 cc. COMPLICATIONS: None. PATHOLOGY SPECIMEN: None. INDICATIONS: See consult note for details. The risks, benefits and alternatives of the procedure were explained to the patient, who elected to proceed and sign ed informed consent to do so. PROCEDURE: The patient was brought to the pre-holding area where the left eye was identified as the operative eye. I placed my initials above this eye. The patient received eye drops consisting of 0.5% tetracaine, 1% tropicamide, 10% phenylephrine, and 0.5% ketorolac. The patient was then brought to the operating room where the left eye was again identified as the operative eye. The eye was prepped with Betadine and draped in the usual sterile ophthalmic fashion. A #15 super-sharp blade was used to create a paracentesis site. 1% non-preserved intracameral lidocaine was injected into the anterior chamber. Endocoat was injected into the anterior chamber. A 2.4 mm keratome was used to create a three-plane self-sealing incision 1 mm anterior to the temporal limbus. A cystotome was used to create an anterior capsular leaflet. The Utrata forceps were used to extend this to form a continuous curvilinear capsulorrhexis. Hydrodissection was performed. The cataract was removed with phacoemulsification using the ullspz-rjk-nknepxz technique. The irrigation and aspiration tip was used to remove the remaining cortex. Healon was injected into the capsular bag. An JEAN CLAUDE ZCB00 intraocular lens of 19.5 diopters was injected into the capsular bag. The irrigation and aspiration tip was used to remove the remaining viscoelastic. Balanced salt solution on a cannula was used to hydrate the wound, and the wound was found to be watertight. The pupil was noted to be round. DISPOSITION: The patient was taken to the recovery room and discharged to home in stable condition. The patient was instructed to call me or go to the emergency department with any sudden change, including dramatic loss of vision, severe pain in the eye or eyebrow region, nausea, or vomiting. The patient will follow up in the clinic tomorrow morning.
== END 2022-09-06 10:54 | disposition home or self-care (01) ==
PROVIDERS: PCP Physician Assistant Medical; Visit Provider Ophthalmology
PROC: (CPT 66984; principal; 2022-09-06 09:00)
DX: H25.12 Age-related nuclear cataract, left eye (principal)
CPT/HCPCS: 66984; 00142; 82962; A9270; J2250; J3010; V2632

== ENCOUNTER 2023-10-30 06:14 | Day surgery (SDC) | payer MEDICARE, SELFPAY ==
[2023-10-30] VITALS (8 sets, daily range): BP systolic 120–190; BP diastolic 75–98; PULSE 67–82; RESP 12–16; TEMP 36.5–36.6; O2SAT 97–98; BMI 30.9
--- OUTSIDE RECORDS SUMMARY | 2023-10-30 06:16 | XMS_ITS | Clinical Summary ---
Author Organization [facility] Address [place], [place] [address] Care Team Providers Care Portrait Consultant Name Role Phone Claudette Martin Primary Care Provider Allergies No known active allergies Medications Medication Sig Dispensed Refills Start Date End Date Status gabapentin (NEURONTIN) 300 mg capsuleIndications :Cervical radiculopathy,Medi an nerve compression,Parest hesias Take 1 capsule in the am, 1 capsule mid day, 2 capsules evening. 360 Capsule 3 05/23/2023 Active olmesartan (Benicar) 40 mg tabletIndications: HTN (hypertension) Take 1 Tablet (40 mg) by mouth once daily. 90 Tablet 3 05/23/2023 Active metFORMIN (GLUCOPHAGE) 1,000 mg tabletIndications: Type 2 diabetes mellitus without complication, without long-term current use of insulin (HC) Take 1 Tablet (1,000 mg) by mouth two times daily with meals. 180 Tablet 3 05/23/2023 Active glipiZIDE extended-release (GLUCOTROL XL) 10 mg Extended-Release tabletIndications: Type 2 diabetes mellitus without complication, without long-term current use of insulin (HC) Take 1 Tablet (10 mg) by mouth once daily before a meal. 90 Tablet 07/31/2023 Active polyethylene glycol-electrolyte (GOLYTELY) 236-22.74-6.74 -5.86 gram suspensionIndicati ons:Encounter for screening colonoscopy Drink 2 liters the day before colonoscopy appointment and 2 liters 6 hours before colonoscopy 4000 mL 08/27/2023 Active Active Problems Problem Noted Date Diagnosed Date Colon polyp 09/11/2023 Overview: Colonoscopy 09/2023 multiple SSA, TA, repeat in 3 years Type 2 diabetes mellitus wit hout complication, without long-term current use of insulin 04/01/2018 Neuropathic pain of hand 08/26/2014 Controlled substance agreement signed 04/23/2014 [place] [facility] [place]14 Neuropathic pain of hand 12/30/2013 Bilateral hand pain 09/16/2013 S/P endoscopic carpal tunnel release 08/20/2013 Carpal tunnel syndrome 05/10/2012 Calcific tendonitis 04/17/2012 Anxiety Encounters Date Type Department Care Team Description 09/06/2023 9:30 AM CDT Office Visit [facility] [address] [place] [address] Micheal Foley MD Procedure (Colonoscopy ) 09/06/2023 Travel 08/30/2023 Telephone [facility] [place] [address] Micheal Foley MD Appointment Reminder 08/23/2023 10:30 AM CDT Orders Only [facility] [address] [place] [address] Lab, [place] [facility] 08/23/2023 Travel 08/17/2023 Telephone [facility] [address] [place] [address] Micheal Foley MD Pre Procedure (Colonoscopy 09/06/23) 07/31/2023 Telephone [facility] [address] [place] [address] Micheal Foley MD Screening 07/31/2023 Telephone [facility] [address] [place] [address] Claudette Martin PA Lab (ORDERS NEEDED ) 07/30/2023 Telephone [facility] [address] [place] [address] Claudette Martin PA Referral (Audiological Evaluation) from Last 3 Months Immunizations Name Administration Dates Next Due Tdap 12/31/2017 Family History Medical History Relation Name Comments Leukemia Father Anxiety disorder Mother Relation Name Status Comments Father Mother Social History Tobacco Use Types Packs/Day Years Used Date Smoking Tobacco: Every Day Cigarettes 1 30 Smokeless Tobacco: Never Tobacco Cessation:Ready to Q uit: No; Counseling Given: Yes Alcohol Use Standard Drinks/Week Comments No 0 (1 standard drink = 0.6 oz pur e alcohol) PHQ-2 Answer Date Recorded PHQ-2 TOTAL SCORE 0 05/23/2023 Social Connections Answer Date Recorded Frequency of Communication with Friends and Fami ly Not on file 08/17/2023 Financial Resource Strain Answer Date R ecorded Difficulty of Paying Living Expenses 3 08/09/2022 Difficulty of Paying Living Expenses Not on file 08/09/2022 Food Insecurity Answer Date Recorded Worried About Running Out of Food in the Last Ye ar 1 08/09/2022 Transportation Needs Answer Date Record ed Lack of Transportation (Medical) 1 08/09/2022 Housing Stability Answer Date Recorded Unable to Pay for Housing in the Last Year 1 08/09/2022 Sex and Gender Information Value Date Recorded Sex Assigned at Not on file Gender Identity Not on file Sexual Orientation Not on file Obstetrics History Last Filed Vital Signs Vital Sign Reading Time Taken Comments Blood Pressure 127/64 09/06/2023 11:05 AM CDT Pulse 68 09/06/2023 11:05 AM CDT Temperature 36.7 ??C (98 ??F) 01/28/2021 7:32 AM CDT Respiratory Rate 16 09/06/2023 11:05 AM CDT Oxygen Saturation 94% 09/06/2023 11:05 AM CDT Inhaled Oxygen Concentration - - Weight 105.2 kg (232 lb) 05/23/2023 7:31 AM REMOTELY OPERATED VEHICLE Height 184.2 cm (6' 0.5) 05/23/2023 7:31 AM REMOTELY OPERATED VEHICLE Body Mass Index 31.03 05/23/2023 7:31 AM REMOTELY OPERATED VEHICLE Plan of Treatment Health Maintenance Due Date Last Done Comments Pneumococcal series for age 6-64 (1 of 2 - PCV) 1965 HIV for age 15-65 1974 Hepatitis C screening for ag e 18-79 1977 Zoster (shingles) series for age 50+ (1 of 2) 2009 COVID-19 vaccine series (2022- season) 2023 Influenza for age 50-64 01/06/2024 BMI (ht and wt on same day) for age 18+ 05/23/2024 05/23/2023, 08/09/2022, 11/02/2021, Additional history exists Depression screening for age 12+ 05/23/2024 05/23/2023, 07/23/2019, 07/23/2019, Additional history exists Low Dose CT (for lung CA) ag e 50-80 05/30/2024 05/30/2023 Colonoscopy through age 75 09/05/202609/05, 09/06/2023, 09/06/2023 Tetanus booster 01/01/2028 12/31/2017 Lipids for age 45-75 05/23/2028 05/23/2023, 08/02/2021, 08/18/2020, Additional history exists Tdap Completed 12/31/2017 Procedures Procedure Name Priority Date/Time Associated Diagnosis Comments PATH TISSUE EXAM Routine 09/06/2023 12:2 2 PM CDT Screening for colon cancer Polyp of colon, unspecified part of colon, unspecified type COLONOSCOPY SCREENING Routine 09/06/2023 9:27 AM CDT Screening for colon cancer COLONOSCOPY 09/06/2023 9:21 AM CDT HEMOGLOBIN A1C Routine 08/23/2023 10:28 AM CDT Type 2 diabetes mellitus without complication, without long-term current use of insulin (HC) CT CHEST SCREENING LOW DOSE WO CONTRAST Routine 05/30/2023 8:11 AM REMOTELY OPERATED VEHICLE Encounter for screening for lung cancer Personal history of nicotine dependence LIPID PANEL W REFLEX MEASURED LDL Routine 05/23/2023 8:22 AM REMOTELY OPERATED VEHICLE Screening cholesterol level from Last 3 Months or Most Recently Relevant to Health Maintenance Results * PATH TISSUE EXAM (09/06/2023 12:22 PM CDT) Case Report Pathology Report ?Case: [id number] ? Authorizing Provider: ??Micheal Foley MD ?? Collected: ? 09/06/2023 1222 ? Ordering Location: ? [facility] ?? Received: ?09/06/2023 1222 ? Clinic ? Pathologist: ? Alice Quintero MD ? Specimens: ?? A) - Transverse Colon Polyp ? B) - Descending Colon Polyp ? 09/10/2023 8:51 AM CDT [facility] [employer] [facility] Final Diagnosis A) COLON, TRANSVERSE, POLYPECTOMIES: 1. Sessile serrated adenomas (3) 2. Negative for overt dysplasia 3. Per the colonoscopy report: ?? a. Polyp sizes: 3 mm - 5 mm ?? b. Resection: Complete ?? c. Retrieval: Complete B) COLON, DESCENDING, POLYPECTOMIES: 1. Tubular adenoma (1) and sessile serrated adenomas (2) 2. Negative for high grade dysplasia 3. Per the colonoscopy report: ?? a. Polyp sizes: 3 mm - 5 mm ?? b. Resection: Complete ?? c. Retrieval: Complete 09/10/2023 8:51 AM CDT [facility] Clinical Information Colonoscopy. Indications: Screening. Patient's first colonoscopy. Findings: Three 3 to 5 mm polyps in the transverse and three 3 to 5 mm polyps in the descending, all resected and retrieved. 09/10/2023 8:51 AM CDT [facility] Gross Description A) Received in formalin are 4 hernandez mucosal fragments ranging from 3 mm to 6 mm in greatest dimension, which are entirely submitted in one cassette. It is labeled with the patient's name and designated A. B) Received in formalin are 3 hernandez mucosal fragments ranging from 5 mm to 10 mm in greatest dimension, which are entirely submitted in one cassette. It is labeled with the patient's name and designated B. Kitty M Noon 09/07/2023 12:19 PM 09/10/2023 8:51 AM CDT [facility] Microscopic Description The final diagnosis is based on microscopic examination of appropriate sections of all specimens. 09/10/2023 8:51 AM CDT [facility] Additional Information Interpreted at [facility] [employer] [facility], Central Laboratory - [address] [facility] [address] [address] 09/10/2023 8:51 AM CDT [facility] Other (Transverse Colon Polyp) Non-Blood / Unknown 09/06/2023 12:22 PM CDT 09/06/2023 12:22 PM CDT Specimen (specimen) (Descending Colon Polyp) Non-Blood / Unknown 09/06/2023 12:22 PM CDT 09/06/2023 12:22 PM CDT Micheal Foley MD PATHOLOGY/CYTOLOG Y [facility] [address] [place] [address], [place] * COLONOSCOPY (09/06/2023 9:21 AM CDT) 09/06/2023 9:21 AM CDT Narrative Transcriptions Micheal Foley MD - 09/06/2023 10:52 AM CDT Patient Name: Ulysses Mcfarland Procedure Date: 09/06/2023 Gender: Male Date of : 1960 Admit Type: Outpatient Procedure: Colonoscopy Proceduralist: Micheal Foley MD , Christi Stanton (Nurse), Anna Alcala (Nurse) Indications/Pre-Op Diagnosis: Screening for colorectal malignant neoplasm, This is the patient's first colonoscopy Medications: Fentanyl 100 micrograms IV, Midazolam 4 mgIV, The level of sedation administered wasmoderate Procedure Description: The patient had risks, benefits and alternatives explained to andgave informed consent. The patient had a stable cardiopulmonary status and judged an adequate candidate for conscious sedation. The endoscope [id number] was passed through the anus andadvanced to the cecum, identified by appendiceal orifice and ileocecal valve.The colonoscopy was performed without difficulty. The patient toleratedthe procedure well. The quality of the bowel preparation was good. The ileocecal valve, appendiceal orifice, and rectum were photographed. Complications: No immediate complications. Estimated Blood Loss & Specimen: Estimated blood loss: none. Specimen collected - Yes and sent to Laboratory Findings: The perianal and digital rectal examinations were normal. Three sessile polyps were found in the transverse colon. The polypswere 3 to 5 mm in size. These polyps were removed with a cold snare. Resection and retrieval were complete. Three sessile polyps were found in the descending colon. The polypswere 3 to 5 mm in size. These polyps were removed with a cold snare. Resection and retrieval were complete. The exam was otherwise without abnormality. Impressions/Post-Op Diagnosis: - Three 3 to 5 mm polyps in the transverse colon, removed with a cold snare. Resected and retrieved. - Three 3 to 5 mm polyps in the descending colon, removed with a cold snare. Resected and retrieved. - The examination was otherwise normal. Recommendation: - Patient has a contact number available for emergencies. The signsand symptoms of potential delayed complications were discussed with the patient. Return to normal activities tomorrow. Written discharge instructions were provided to the patient. - Resume previous diet. - Continue present medications. - Await pathology results. - Repeat colonoscopy is recommended. The colonoscopy date will be determined after pathology results from today's exam become available for review. Moderate Sedation: A time out was performed before the procedure. Moderate (conscious) sedation was administered by the endoscopy nurse and supervised bythe endoscopist. The following parameters were monitored: oxygensaturation, heart rate, blood pressure, EKG, CO2, respiratory rate, adequacy of pulmonary ventilation and reponse to care. Please refer to the patient's medical record flowsheets and nursing notes for moderate sedation details. Total physician intraservice time was 37 minutes. Micheal Foley MD 09/06/2023 10:52:29 AM This report has been signed electronically. Note Initiated On: 09/06/2023 9:21 AM Procedure Code(s): --- Professional --- 60580, Colonoscopy, flexible; with removalof tumor(s), polyp(s), or other lesion(s) bysnare technique Diagnosis Code(s): --- Professional --- Z12.11, Encounter for screening formalignant neoplasm of colon D12.3, Benign neoplasm of transverse colon (hepatic flexure or splenic flexure) D12.4, Benign neoplasm of descending colon CPT copyright 2022 [employer]. All rights reserved. The codes documented in this report are preliminary and upon biotech production specialist reviewmay be revised to meet current compliance requirements. Scope In: 10:10:51 AM Scope Withdrawal Time 0 hours 25 minutes 57 seconds Scope Out: 10:44:49 AM Micheal Foley MD PROCEDURE ORD * (ABNORMAL) HEMOGLOBIN A1C MONITORING (POCT) (08/23/2023 10:28 AM CDT) HEMOGLOBIN A1C MONITORING (POCT) 7.7(H) <=6.4 % 08/23/2023 10:39 AM CDT [facility] Blood BLOOD SPECIMEN / Unknown Venipuncture / Unknown 08/23/2023 10:28 AM CDT 08/23/2023 10:30 AM CDT Narrative [facility] - 08/23/2023 10:39 AM CDT ? (<=6.9%) ? Indicates good control ? (7.0% to 7.9%) ? Indicates fair control ? (>=8.0%) ? Indicates poor control ?? NOTE: ??These thresholds are guidelines and ?individual targets may vary. Falsely low levels may be seen with: Recent Transfusion, Recent Significant Blood Loss, Hemolytic Diseases, or Falsely elevated levels may be seen with: Untreated Anemias, Splenectomy ? Claudette DIAMOND CHEMISTRY [facility] [address] [place] [address], * CT CHEST SCREENING LOW DOSE WO CONTRAST [[id number]] -- NOTE: to meet CMS requirements, this order ONLYto be placed by the person completing the Shared Decision Making Visit (05/30/2023 8:11 AM REMOTELY OPERATED VEHICLE) Anatomical Region Laterality Modality Computed Tomogra phy Impressions 05/30/2023 2:19 PM REMOTELY OPERATED VEHICLE Negative for lung cancer screening purposes. LUNG-RADS CATEGORY: 1: Negative. RADIOLOGIST RECOMMENDATION: Continue annual screening with low-dose CT chest in 12 months. Please note that all CT scans at this facility use dose modulation, iterative reconstruction and/or weight-based dosing when appropriate to reduce radiation dose to as low as reasonably achievable. ?? Dictated by: Cody Thornton MD @05/30/2023 9:42:09 AM ?? CRL/tricia Narrative 05/30/2023 2:19 PM REMOTELY OPERATED VEHICLE For Patients: As a result of the Century Cures Act, medical imaging exams and procedure reports are released immediately into your electronic medical record. ??You may view this report before your referring provider. ?? If you have questions, please contact your health care provider. CT CHEST SCREENING LOW-DOSE WITHOUT CONTRAST 05/30/2023 INDICATION: Lung cancer screening. History of smoking. High-risk patient with greater than 20 pack-year smoking history. TECHNIQUE: Low-dose lung cancer screening non-contrast CT chest. Dose reduction techniques were used. COMPARISON: Chest x-ray 07/03/2016. FINDINGS: NODULES: None. LUNGS AND PLEURA: Emphysema. Curvilinear scarring within the anterior left upper lobe. MEDIASTINUM: No adenopathy. Mild atherosclerotic change. CORONARY ARTERY CALCIFICATION: None. LIMITED UPPER ABDOMEN: Status post cholecystectomy. Fatty liver. MUSCULOSKELETAL: Normal. Claudette DIAMOND CT * (ABNORMAL) LIPID PANEL W REFLEX MEASURED LDL (05/23/2023 8:22 AM REMOTELY OPERATED VEHICLE) CHOLESTEROL,TOTAL 100 100 - 199 mg/dL 05/23/2023 5:14 PM REMOTELY OPERATED VEHICLE [facility] Comment: Cholesterol, Total Reference Ranges Desirable <200 mg/dL Borderline 200-239 mg/dL High >=240 mg/dL TRIGLYCERIDES 117 <150 mg/dL 05/23/2023 5:14 PM REMOTELY OPERATED VEHICLE [facility] HDL CHOLESTEROL 40(L) >40 mg/dL 5:14 PM REMOTELY OPERATED VEHICLE [facility] [employer] NON-HDL CHOLESTEROL 60 <145 mg/dl 05/23/2023 5:14 PM REMOTELY OPERATED VEHICLE [facility] CHOL/HDL RATIO 2.50 <4.50 05/23/2023 5:14 PM REMOTELY OPERATED VEHICLE [facility] LDL CHOLESTEROL 37 <=130 mg/dL 05/23/2023 5:14 PM REMOTELY OPERATED VEHICLE [facility] VLDL CHOLESTEROL 23 <=30 mg/dL 05/23/2023 5:14 PM REMOTELY OPERATED VEHICLE [facility] PROVIDER ORDERED STATUS RANDOM 05/23/2023 5:14 PM REMOTELY OPERATED VEHICLE [facility] Blood BLOOD SPECIMEN / Unknown Venipuncture / Unknown 05/23/2023 8:22 AM REMOTELY OPERATED VEHICLE 05/23/2023 8:22 AM REMOTELY OPERATED VEHICLE [facility]OND [facility] [address] [address], from Last 3 Months or Most Recently Relevant to Health Maintenance Care Teams Portrait Consultant Relationship Specialty Start Date End Date Claudette Martin PA [address] [place] [id number] PCP - General Family Practice 05/08/11
[2023-10-30] MEDS: SODIUM CHLORIDE 0.9 % (FLUSH) 10 ML SYRINGE IVF (06:30)
[2023-10-30] MEDS: CEFAZOLIN 2 GM INJ IVP (07:14)
[2023-10-30] MEDS: BUPIVACAINE 0.5 %/EPI 1:200K INJECTION (07:15)
--- NOTE | 2023-10-30 07:43 | PM.ORPRC ---
Procedure Note Date of procedure: 10/30/23 Procedure: Preop diagnosis: Left hand index finger stenosing tenosynovitis Postop diagnosis: Left hand index finger stenosing tenosynovitis Procedure: Left hand index finger A1 maira release Anesthesia: Local Surgeon: Ren Ronquillo MD assistant professor of radiology: Lizet Alexander PA-C EBL: 1 mL Complications: None Specimens: None Drains: None Preoperative antibiotics: None Indications: The patient has a history of left upper extremity index finger painful catching and locking. Despite appropriate non operative management including flexor tendon sheath corticosteroid injections they continue to have symptoms. Operative intervention was recommended. The risks, benefits alternatives and expected outcomes were discussed in detail. These included but were not limited to: Infection, bleeding, injury to blood vessel or nerve, venous thromboembolism. All questions were answered to their satisfaction. The patient was placed supine on the operating room table. Local anesthesia was established with 0.5% Marcaine with epinephrine and 2% lidocaine with epinephrine. The hand was prepped and draped in usual sterile fashion. A transverse incision was made centered over the base of the index finger in the distal palmar crease. Subcutaneous dissection was taken through the palmar fascia to the flexor tendons with the tenotomy scissors. The A1 maira was released with the 15 blade and tenotomy scissors. Active flexion and extension of the finger shows no catching or locking, no bowstringing of the flexor tendons. The wound was closed with interrupted nylon sutures. A dry dressing was applied. Sponge and needle counts were correct x 2. The patient tolerated the procedure well, there were no apparent complications. They were sent to same day surgery in satisfactory condition. Plan: Use of the hand as tolerates. Discontinue the intraoperative dressing on postoperative day 3 and may get the wound wet as tolerates. Follow up in the office in 2 weeks for a wound check and suture removal.
== END 2023-10-30 08:04 | disposition home or self-care (01) ==
LOC: OR 06:15
PROVIDERS: PCP Physician Assistant Medical; Visit Provider Orthopaedic Surgery
PROC: (CPT 26055; principal; 2023-10-30 07:15)
DX: M65.322 Trigger finger, left index finger (principal); M65.842 Other synovitis and tenosynovitis, left hand
CPT/HCPCS: 26055; J0690; J3490